=== PATIENT | female | born 1990 | race Caucasian/White ===

== ENCOUNTER 2016-12-25 20:28 | Emergency (ER) | payer OTHER ==
[2016-12-25 21:03] VITALS: BP 150/94
[2016-12-25] MEDS ORDERED: Amoxicillin/Clavulanate TAB* 875 MG PO ONE (21:48)
--- NOTE | 2016-12-25 21:48 | UC ---
Bite Injury/Animal HPI - HPI Summary HPI Summary: While out walking dog this afternoon another dog accosted them, bit pt's dog, then bit pt while she was trying to break up the fight. PWs, bruising, and teeth joy on L forearm. Pain with movement of wrist, but full elbow and hand ROM. - History of Current Complaint Chief Complaint: UCBiteInjury Stated Complaint: DOG BITE Time Seen by Provider: 12/25/16 21:40 Hx Obtained From: Patient Hx Last Menstrual Period: 12/10/16 ?: No Severity Currently: Moderate Severity Initially: Mild Onset/Duration: Sudden Onset Type of Bite: Pet Has Animal Been Immunized?: Yes Character: Puncture Aggravating Factor(s): Exertion Alleviating Factor(s): Nothing Associated Signs And Symptoms: Positive: Drainage - blood, serous fluid Hx of Bite: Unprovoked Animal Available for Observation: Yes Animal Control Notified: Yes - Allergies/Home Medications Allergies/Adverse Reactions: Allergies Allergy/AdvReac Type Severity Reaction Status Date / Time Prochlorperazine Allergy Agitation Verified 12/25/16 21:04 [From Compazine] Promethazine [From Phenergan] Allergy Agitation Verified 12/25/16 21:04 PMH/Surg Hx/FS Hx/Imm Hx Respiratory History Of: Reports: Asthma - Surgical History Surgical History: None - Family History Known Family History: Negative: Hypertension - Social History Alcohol Use: Rare Substance Use Type: None Smoking Status (MU): Never Smoked Tobacco Review of Systems Constitutional: Negative Skin: Bruising, Other - bite wounds to L forearm Eyes: Negative ENT: Negative Respiratory: Negative Cardiovascular: Negative Gastrointestinal: Negative Genitourinary: Negative Motor: Negative Neurovascular: Negative Musculoskeletal: Negative Neurological: Negative Psychological: Negative All Other Systems Reviewed And Are Negative: Yes Physical Exam Triage Information Reviewed: Yes Appearance: Well-Appearing, Well-Nourished, Pain Distress - mild Vital Signs: Initial Vital Signs Temp 98.6 F 12/25/16 21:00 Pulse 68 12/25/16 21:00 Resp 20 12/25/16 21:00 BP 150/94 12/25/16 21:00 Pulse Ox 100 12/25/16 21:00 Vital Signs Reviewed: Yes Eye Exam: Normal Eyes: Positive: Conjunctiva Clear ENT Exam: Normal ENT: Positive: Normal ENT inspection, Hearing grossly normal, Pharynx normal, TMs normal Dental Exam: Normal Neck exam: Normal Neck: Positive: Supple, Nontender, No Lymphadenopathy Respiratory Exam: Normal Respiratory: Positive: Chest non-tender, Lungs clear, Normal breath sounds, No respiratory distress, No accessory muscle use Cardiovascular Exam: Normal Cardiovascular: Positive: RRR, No Murmur Musculoskeletal Exam: Other - swelling to L forearm near crush injury Musculoskeletal: Positive: Strength Intact - Full L cleaning associate strength Neurological Exam: Normal Psychological Exam: Normal Skin Exam: Other - PWs to L forearm with blood and serous drg. Bite Injury Course/Dx - Differential Dx/Diagnosis Provider Diagnoses: L forearm PWs from dog bite. L forearm crush injury from dog bite. Elevated blood pressure due to discomfort Discharge - Discharge Plan Condition: Stable Disposition: HOME Prescriptions: Amoxicillin/Clavulanate TAB* [Augmentin TAB 875*] 875 mg PO BID #9 tab Patient Education Materials: Animal Bite (ED) Additional Instructions: Elevate the arm and inspect for signs of infection. The health department will be in contact with you.
== END 2016-12-25 22:06 | disposition home or self-care (01) ==
LOC: UCEAST 20:28
DX: S51.832A Puncture wound without foreign body of left forearm, initial encounter (principal); S57.82XA Crushing injury of left forearm, initial encounter; W54.0XXA Bitten by dog, initial encounter; Y93.K1 Activity, walking an animal; Y92.9 Unspecified place or not applicable; R03.0 Elevated blood-pressure reading, without diagnosis of hypertension; J45.909 Unspecified asthma, uncomplicated
CPT/HCPCS: 99203; A9270-GY; G0463